=== PATIENT | female | born 1965 | race Caucasian/White ===

== ENCOUNTER 2024-07-21 23:21 | Emergency (ER) | payer OTHER, SELFPAY ==
--- NOTE | ~2024-07-21 | CT_ITS ---
Clinical Indication: Shortness of breath, transaminitis CT Scan of the Chest, Abdomen, and Pelvis with Contrast: Technique: Contiguous sections were acquired throughout the chest, abdomen, and pelvis after intraven ous administration of 100 cc of Omnipaque 350. Dose reduction technique was used on this scan by uti edwaring automated exposure control and iterative reconstruction technique. The dose-length product (DL P) was 1942.43 mGy-cm. Findings: There is no evidence of any significant mediastinal, hilar or axillary lymphadenopathy. The mediastin al soft tissues appear normal. No aortic aneurysm or dissection. No large central pulmonary embolus e vident. There is no evidence of pleural or pericardial effusion. The lungs are clear. No pulmonary nodules or infiltrates are noted. The liver, spleen, pancreas, adrenals and kidneys are within normal limits. Cholecystectomy clips are present. No evidence of aortic aneurysm. No lymphadenopathy. No bowel obstruction or bowel wall thickening. There is no evidence to suggest acute appendicitis. Urinary bladder is unremarkable. No pelvic mass seen. No ascites. Impression: No significant abnormalities seen. Reviewed, dictated and finalized at [facility]. Impression: No significant abnormalities seen.
--- NOTE | ~2024-07-21 | XR_ITS ---
Clinical Indication: Cough PA and lateral views of the chest: Comparison: None Findings: The lungs are clear, without evidence of focal consolidation or pleural effusion. Cardiome diastinal silhouette is within normal limits. Bones and soft tissues are unremarkable. Impression: Normal chest. Reviewed, dictated and finalized at location . Impression: Normal chest.
[2024-07-21 23:23] VITALS: BP 153/74; PULSE 95; RESP 17; TEMP 36.6; O2SAT 99
--- NOTE | 2024-07-21 23:28 | ECG_ITS ---
Test Date: 2024-07-21 23:32:04 Measurements Intervals Mcneal Rate: 90 P: 35 WV: 194 QRS: 3 QRSD: 97 T: 28 QT: 376 QTc: 462 Interpretive Statements SINUS RHYTHM POSSIBLE LEFT ATRIAL ENLARGEMENT INCOMPLETE RIGHT BUNDLE BRANCH BLOCK DELAYED PRECORDIAL R/S TRANSITION LOW QRS VOLTAGE IN PRECORDIAL LEADS BASELINE ARTIFACT- I, II, III, AVR, AVL, AVF, V1-V2 BORDERLINE ECG No previous ECG available for comparison Electronically Signed On 07-22-2024 06:15:51 CDT by Mejia Yoder D.O.
[2024-07-21 23:49] LABS: Basophils Absolute Auto 0.1 K/mm3 (0.0-0.1); Basophils Percent Auto 0.8 % (0.2-1.2); Eosinophils Absolute Auto 0.3 K/mm3 (0-0.3); Eosinophils Percent Auto 4.1 % (0-4.4); Hematocrit 39.2 % (37.0-47.0); Hemoglobin 12.4 g/dL (12.0-15.0); Immature Granulocyte Absolute 0.02 K/mm3 (0.00-0.031); Immature Granulocyte Percent A 0.3 % (0-0.5); Lymphocytes Absolute Auto 2.13 K/mm3 (0.9-3.2); Lymphocytes Percent Auto 34.6 % (18.3-44.2); Mean Corpuscular HGB Conc 31.6 g/dl (32-36); Mean Corpuscular Hemoglobin 29.3 pg (26-34); Mean Corpuscular Volume 92.7 fl (80-100); Mean Platelet Volume 9.2 fl (7.4-10.4); Monocytes Absolute Auto 0.5 K/mm3 (0.1-0.6); Monocytes Percent Auto 8.3 % (2.6-8.5); Neutrophils Absolute Auto 3.2 K/mm3 (1.3-6.7); Neutrophils Percent Auto 51.9 % (45.5-73.1); Platelet Count Result 215 k/mm3 (150-375); Red Blood Count 4.23 M/mm3 (4.2-5.4); Red Cell Distribution Width 13.2 % (11.5-14.5); White Blood Count 6.2 K/mm3 (4.5-10.0)
[2024-07-22] VITALS (21 sets, daily range): BP systolic 100–127; BP diastolic 53–68; PULSE 72–84; RESP 12–22; O2SAT 96–100
[2024-07-22 00:01] LABS: Alanine Aminotransferase 117 U/L (6-35); Albumin Level 4.3 g/dL (3.5-5.1); Alkaline Phosphatase 42 U/L (38-126); Anion Gap 8 mmol/L (4-12); Aspartate Amino Transferase 68 U/L (14-36); Bilirubin,Total 0.2 mg/dL (0.2-1.3); Blood Urea Nitrogen 18 mg/dL (7-17); Calcium 9.1 mg/dL (8.4-10.2); Carbon Dioxide 31 mmol/L (22-30); Chloride 104 mmol/L (98-107); Estimated CRCL calculation 74 ml/min; Estimated Glomerular Filt Rate > 60; Glucose 101 mg/dL (65-110); Potassium 4.1 mmol/L (3.4-5.0); Sodium 143 mmol/L (137-145)
[2024-07-22 00:28] LABS: D Dimer < 0.27 ug/mL (<0.48)
--- OUTSIDE RECORDS SUMMARY | 2024-07-22 03:11 | XMS_ITS | Patient Health Record ---
Author Organization [facility] Address [address] [place] [address] Care Team Providers Care Tongue And Groove Machine Feeder Name Role Phone Jhony RICCI, Jenna Primary Care Provider Krystian Abarca Unavailable [phone] Allergies Allergen (clinical drug ingredient) Drug/Non Drug Allergy documented on EMR Reaction Allergy Type Onset Date Status codeine Codeine Unknown Drug Allergy Active sulfacetamide Sulfacetamide Unknown Drug Allergy Active Reason For Referral No Information Medications Medication SIG (Take, Route, Fr equency, Duration) Notes Start Date End Date Status Propranolol HCl Acti ve Xeralto Active Levothyroxine Sodium Active Omeprazole Active Problems Problem Type SNOMED Code ICD Code Onset Dates Problem Status W/U Status Risk Notes Problem Raynaud's syndrome without gangrene (I73.00) Active confirmed Problem Valgus deformity (298542547) 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
--- OUTSIDE RECORDS SUMMARY | 2024-07-22 03:12 | XMS_ITS | Patient Health Record ---
Author Organization [facility] Address [address] [facility], [address] [id number] Care Team Providers Care Plant Worker Name Role Phone Valdemar Clayton Unavailable [phone] Valdemar Clayton Unavailable Unavailable Migration, Provider Unavailable Unavailable Allergies Allergen (clinical drug ingredient) Drug/Non Drug Allergy documented on EMR Reaction Allergy Type Onset Date Status codeine Codeine Sulfate Unknown Drug Allergy A ctive Simvastatin Unknown Drug Allergy Activ e bupropion Wellbutrin XL Unknown Drug Allergy Act gerald Reason For Referral No Information Medications Medication SIG (Take, Route, Frequency, Duration) Notes Start Date End Date Status Xarelto *Please review a nd pick correct strength-formulatio n from Medispan options. If intended option is not shown, discontinue and re-order from Quick Search* Active Synthroid *Please review a nd pick correct strength-formulatio n from Medispan options. If intended option is not shown, discontinue and re-order from Quick Search* Active Propranolol HCl *Please review a nd pick correct strength-formulatio n from Medispan options. If intended option is not shown, discontinue and re-order from Quick Search* Active Omeprazole *Please review a nd pick correct strength-formulatio n from Medispan options. If intended option is not shown, discontinue and re-order from Quick Search* Active DOCUSATE SODIUM (OBSOLETE), 125 G *Please review for potential replacement for e-prescription and drug interaction check* Active Social History Tobacco Use: Social History Observation Description Date Details (start date - stop date) Never Smoker NA - NA Alcohol Question Answer Notes Did you have a drink contain ing alcohol in the past year? Yes How often did you have a dri nk containing alcohol in the past year? Two to four times a month (2 points) How many drinks did you have on a typical day when you were drinking in the past year? 1 or 2 (0 points) How often did you have six o r more drinks on one occasion in the past year? 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) Active confirmed Problem Acquired lymphedema (02013818) Acquired lymphedema (I89.0) Active confirmed Problem Restless legs (58632836) Restless legs (G25.81) Active confirmed Problem 138958387 Left leg pain (M79.605) Active confirmed Problem 608034016 Leg heaviness (R29.898) Active confirmed Problem 016847055 Leg edema, left (R60.0) Active confirmed Problem 629514079 Itching (L29.9) Active confirmed Problem 91138220 Venous insufficiency (I87.2) Active confirmed Problem Varicose veins of lower extremity (45159084) Varicose veins of right lower extremity with other complications (I83.891) Active confirmed Problem Varicose veins of left lower limb (5712958742988 9109) Varicose veins of left lower extremity with other complications (I83.892) Active confirmed Problem 574031629 Malignant neoplasm of cervix, unspecified site (C53.9) Active confirmed Problem 11130961 Bilateral pulmonary embolism (I26.99) Active confirmed Encounters Encounter Location Date Provider Diagnosis [facility] [address] [facility], [address] [id number] 10/20/2023 Provider Migration Plan Of Treatment Pending Test Test Name Order Date Ultrasound : Leg venous, left 07/13/2021 Ultrasound : Leg venous, left 09/09/2021 Insurance Providers Payer Name Payer Address Payer Phone Subscriber Number Group Number Insured Name Patient Relationship to Insured Coverage Start Date Coverage End Date [address] [address] [id number] Yvonne Strickland Self - patient is the insured Medical (General) History Medical History History ICD Code Malignant neoplasm of cervix, unspecifie d site C53.9 Bilateral pulmonary embolism I26.99 LLE DVT below knee in June 2013 and June 20 017 Surgical History Surgery Date(Month/Year) finger reattachment 1967 1995 1998 LLE GSV RFA 08/29/21 LLE GSV Varithena 08/30/21 Hospitalization History Reason Date(Month/Year) see surgical hx
--- OUTSIDE RECORDS SUMMARY | 2024-07-22 03:12 | XMS_ITS ---
Author Organization [facility] Address [address] [facility] [place], [place] [id number] Care Team Providers Care Automatic Bow Maker Machine Tender Name Role Phone aVldemar Clayton Unavailable [phone] Valdemar Clayton Unavailable Unavailable Migration, Provider Unavailable Unavailable Allergies Allergen (clinical drug ingredient) Drug/Non Drug Allergy documented on EMR Reaction Allergy Type Onset Date Status codeine Codeine Sulfate Unknown Drug Allergy A ctive Simvastatin Unknown Drug Allergy Activ e bupropion Wellbutrin XL Unknown Drug Allergy Act greald [facility] Encounter Medications Medication SIG (Take, Route, Frequency, Duration) [...] for e-prescription and drug interaction check* Active Encounters Encounter Location Date Provider Diagnosis [facility] [address] [facility] [address] [address] [place], [place] [id number] 10/20/2023 Provider Migration Plan Of Treatment No Information Progress Notes * Alirio LEONEOB:1965 (59 yo F)Acc No.[id number]:10/20/2023 Patient: Yvonne KATZ Provider: :1965 A ge:58 Y S ex:Female Date:10/20/2023 Address:[address] [place] [address], [place], [id number] Subjective: * Chief Complaints: * 1 . Multum To Medispan Conversion Encounter. * Medical History: * Medications: T aking DOCUSATE SODIUM (OBSOLETE), 125 G , Notes to Pharmacist: *Please review for potential replacement for e-prescription and drug interaction check*, Taking Propranolol HCl , Notes to Pharmacist: *Please review and pick correct strength-formulation from Medispan options. If intended option is not shown, discontinue and re-order from Quick Search*, Taking Omeprazole , Notes to Pharmacist: *Please review and pick correct strength-formulation from Medispan options. If intended option is not shown, discontinue and re-order from Quick Search*, Taking Xarelto , Notes to Pharmacist: *Please review and pick correct strength- formulation from Medispan options. If intended option is not shown, discontinue and re-order from Quick Search*, Taking Synthroid , Notes to Pharmacist: *Please review and pick correct strength-formulation from Medispan options. If intended option is not shown, discontinue and re-order from Quick Search* * Allergies: C odeine Sulfate, Simvastatin, Wellbutrin XL. Objective: * Vitals: Assessment: Plan: * Treatment: * Images: * Electronic signature of Prov ider Migration on 07/22/2024 at 01:11 AM PDT Sign off status: Pending * Provider: Date: 10/20/2023 Generated for Michael schwartz/La Nena/Jeromyitting on: 07/22/2024 01:11 AM PDT
--- NOTE | 2024-07-22 03:37 | ED_ITS ---
HPI - SOB/Dyspnea General Chief Complaint: Shortness of Breath/Dyspnea Stated Complaint: dry cough, SOB Time Seen by Provider: 07/22/24 02:47 Source: patient and family () Mode of arrival: ambulatory Limitations: no limitations History of Present Illness HPI Narrative: Keke presents with concern for shortness of breath and a cough as well as metallic taste in her mouth. She recently (07/08) started coumadin for antiphospholipid syndrome. 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 Her throat hurts with coughing and she is having difficulty concentrating. Feels like she has been wheezing. had a cold recently, though is out of town for 1 week and in town 1 week at a time and the cold was when he was out of time and symptoms had neared resolution by the time he was home and/or felt to be contagious. She feels like she has congestion in her throat and lungs and that there is liquid that makes her short of breath, particularly when laying down. No chest pain. Nauseated. Other medications are propranlol BID (for migraines), levothyroxine and hydroxychloroquine for a diagnosis of lupus in March. Not on an MAGALY/ARB. Had been diagnosed with ashtma when she was younger but outgrew it. No hemptysis, fever, chills. Non smoker. Related Data Allergies Allergy/AdvReac Type Severity Reaction Status Date / Time Sulfa (Sulfonamide Allergy Severe Anaphylaxis Verified 07/21/24 23:22 Antibiotics) [facility] Past Medical History Medical History Antiphospholipid syndrome History of deep venous thrombosis or pulmonary embolus Lupus Migraine Thyroid disease Social History Social History Social History: Smoking status: Never smoker Living arrangements: with family Additional living arrangements comments: Exam 2 Narrative: GENERAL: Well-appearing, well-nourished, and in no acute distress. HEAD: Normocephalic, atraumatic. EYES: Non injected, non icteric ENT: Nares clear, no rhinorrhea or epistaxis. Gross auditory acuity intact. NECK: Supple. No meningismus. CHEST: Speaking in full sentences. No respiratory distress. Lungs clear to ausculation without appreciable wheezes crackles rhonchi or areas of appreciable consolidation HEART: Regular rate and rhythm. . ABDOMEN: Soft, nondistended. No rigidity or guarding. Not peritoneal EXTREMITIES: Normal range of motion. No pitting lower extremity edema though left leg slightly larger than right. SKIN: Warm, dry, no rash. NEURO: No focal deficits. Alert and oriented. Answering questions. Following commands. Normal speech without aphasia or dysarthria. PSYCH: Normal mood and affect. Course Vital Signs Vital signs: Vital Signs Temperature 97.9 F 07/21/24 23:23 Pulse Rate 95 07/21/24 23:23 Respiratory Rate 17 07/21/24 23:23 Blood Pressure 153/74 H 07/21/24 23:23 Pulse Oximetry 99 07/21/24 23:23 Oxygen Delivery Room Air 07/21/24 23:23 Temperature 97.9 F 07/21/24 23:23 Pulse Rate 84 07/22/24 06:29 Respiratory Rate 16 07/22/24 06:29 Blood Pressure 113/60 07/22/24 05:31 Pulse Oximetry 98 07/22/24 06:29 Oxygen Delivery Room Air 07/22/24 04:14 MDM - SOB/Dyspnea MDM Narrative Medical decision making narrative: Patient presents with shortness of breath and a dry cough as well as nausea and metallic taste in mouth. Concerned for a medication side effect. Recently started taking coumadin (started 07/08) due to history of PE/DVT and antiphopholipid syndrome. ALso has lupus. In the emergency department she is afebrile with vital signs notable for mild hypertension the resolved on repeat assessment. D dimer normal. AST and ALT elevation with no prior for comparison. Rest of work up unremarkable including both CXR and CT. Discussed patient's work up with her and the diagnoses that had been excluded. Possible side effect but urged her to discuss with PCP rather than discontinue to medicine entirely given the risks/benefits. Verifies understanding. DIscharged in stable condition. Differential Diagnosis Differential diagnosis: Likely congestive heart failure, community acquired pneumonia, asthma with exacerbation, pulmonary embolism (/diffuse alveolar hemorrhage) and other (lupus induced, medication induced, pulmonary hypertension; acute viral syndrome; bronchitis; URI; alveolar hemorrhage) Lab Data Attestation: I reviewed the patient's lab results. 07/21/24 23:36 07/21/24 23:36 Labs: Lab Results 07/21/24 07/22/24 Range/Units 23:36 04:02 WBC 6.2 (4.5-10.0) K/mm3 RBC 4.23 (4.2-5.4) M/mm3 Hgb 12.4 (12.0-15.0) g/dL Hct 39.2 (37.0-47.0) % MCV 92.7 (80-100) fl MCH 29.3 (26-34) pg MCHC 31.6 L (32-36) g/dl RDW 13.2 (11.5-14.5) % Plt Count 215 (150-375) k/mm3 MPV 9.2 (7.4-10.4) fl Immature Gran % (Auto) 0.3 (0-0.5) % Neut % (Auto) 51.9 (45.5-73.1) % Lymph % (Auto) 34.6 (18.3-44.2) % Schley % (Auto) 8.3 (2.6-8.5) % Eos % (Auto) 4.1 (0-4.4) % Baso % (Auto) 0.8 (0.2-1.2) % Lymph # (Auto) 2.13 (0.9-3.2) K/mm3 Schley # (Auto) 0.5 (0.1-0.6) K/mm3 Eos # (Auto) 0.3 (0-0.3) K/mm3 Baso # (Auto) 0.1 (0.0-0.1) K/mm3 Abs Immat Gran (auto) 0.02 (0.00-0.031) K/mm3 Absolute Neuts (auto) 3.2 (1.3-6.7) K/mm3 Absolute Nucleated RBC 0.000 (0.0-0.012) K/mm3 Nucleated RBC % 0.0 (0.0-0.2) % D-Dimer < 0.27 (<0.48) ug/mL Sodium 143 (137-145) mmol/L Potassium 4.1 (3.4-5.0) mmol/L Chloride 104 (98-107) mmol/L Carbon Dioxide 31 H (22-30) mmol/L Anion Gap 8 (4-12) mmol/L BUN 18 H (7-17) mg/dL Creatinine 0.89 (0.7-1.0) mg/dL Estim Creat Clear Calc 74 ml/min Estimated GFR > 60 (59 - ) Glucose 101 (65-110) mg/dL Calcium 9.1 (8.4-10.2) mg/dL Total Bilirubin 0.2 (0.2-1.3) mg/dL AST 68 H (14-36) U/L ALT 117 H (6-35) U/L Alkaline Phosphatase 42 (38-126) U/L NT-Pro-B Natriuret Pep < 20 (19.9-100) pg/mL Total Protein 8.0 (6.3-8.2) g/dL Albumin 4.3 (3.5-5.1) g/dL Influenza A (RT-PCR) Negative (Negative) Influenza B (RT-PCR) Negative (Negative) RSV (RT-PCR) Negative (Negative) SARS-CoV-2 RNA (RT-PCR) Negative (Negative) Imaging Data Attestation: I personally reviewed and interpreted this imaging study as follows: My impression: Negative for acute process on my independent interpretation Radiologist's impression: Impression: Normal chest. Impression: No significant abnormalities seen. ECG Data EKG #1: Attestation: I personally reviewed and interpreted this ECG as follows: ECG completion date: 07/21/24 ECG completion time: 23:32 Interpretation: Normal sinus rhythm at a rate of 90 beats per minute. PA interval 194. QRS 97. QT/QTC 376/424. T-wave flattening in 3 but no inversions in precordial leads. There is T-wave inversion in lead 3 but otherwise upright in normal in contiguous inferior leads 2 and AVF. Discharge Plan Discharge Clinical Impression: Acute cough, Elevated AST (SGOT), Elevated ALT measurement, Acute dyspnea Patient Disposition: Home Condition: Stable Instructions: Antibiotic Form, Dyspnea (ED), Acute Cough (ED), Transaminitis (ED) Additional Instructions: Your workup which included labs, chest x-ray, and CT scan as well as EKG did not reveal a cause of your symptoms. It is possible that some of your symptoms are medication side effect but Follow-up with your primary care physician before discontinuing this medication given your risk factors. If you do not have 1 the name of the doctors listed below. Return to the emergency department with any new, worsening, or unmanaged symptoms. You can trial the medication prescribed for cough. Patient Language: Cape Verdean Prescriptions: New benzonatate 100 mg capsule 100 mg PO BID PRN (Reason: cough) Qty: 20 0RF Follow-up/Referrals: PHYSICIAN NOT ON STAFF,NONSTAFF [Primary Care Provider] - Jasen Cason MD [Physician] - Stand Alone Forms: Work/School Release IP Time of Disposition: 06:07
[2024-07-22] MEDS: BENZONATATE 100 MG CAPSULE PO (04:01)
[2024-07-22] MEDS: SODIUM CHLORIDE 0.9% IV 500 ML 999 ML IV CONT (05:00)
[2024-07-22 05:03] LABS: NT Pro B Type Natriuretic Pept < 20 pg/mL (19.9-100)
[2024-07-22 05:19] LABS: Influenza A QL RT-PCR Negative (Negative); Influenza B QL RT-PCR Negative (Negative); RSV RNA, RT-PCR Negative (Negative); SARS-CoV-2 RNA PCR Negative (Negative)
== END 2024-07-22 06:34 | disposition home or self-care (01) ==
PROVIDERS: Emergency Provider Student in an Organized Health Care Education/Training Program
DX: R05.9 Cough, unspecified (principal); R74.01 Elevation of levels of liver transaminase levels; R06.00 Dyspnea, unspecified; Z86.718 Personal history of other venous thrombosis and embolism; M32.9 Systemic lupus erythematosus, unspecified
CPT/HCPCS: 36415; 71046; 71260; 74177; 80053; 83880; 85025; 85380; 87637; 93005; 96360; 99284; A9270; J7040; Q9967